=== PATIENT | male | born 1940 | race Caucasian/White ===

== ENCOUNTER 2018-01-01 13:46 | Observation (INO) | payer MEDICARE, OTHER ==
[~2018-01-01] VITALS: Ht 170.2 cm; Wt 71.8 kg
[2018-01-01] VITALS (8 sets, daily range): BP systolic 120–156; BP diastolic 51–64
--- NOTE | 2018-01-01 14:21 | NUR ---
PT TRIAGED, TO ROOM 2 VIA WC TO BEGIN WORKUP. PT TO BATHROOM VIA WC TO OBTAIN URINE SPECIMEN
--- NOTE | 2018-01-01 14:50 | NUR ---
Pt moved to room # 10 for higher level of care per charge nurse.
[2018-01-01 15:06] LABS: URINE BILIRUBIN - DIPSTICK NEGATIVE (NEGATIVE); URINE BLOOD DIPSTICK TRACE-INTACT (NEGATIVE); URINE COLOR YELLOW; URINE GLUCOSE - DIPSTICK NEGATIVE (NEGATIVE); URINE KETONE NEGATIVE (NEGATIVE); URINE LEUK ESTERASE NEGATIVE (NEGATIVE); URINE NITRITE - DIPSTICK NEGATIVE (Negative); URINE PH 5.5 (4.5-8.0); URINE PROTEIN - DIPSTICK 30 mg/dL (NEG-TRACE); URINE SPECIFIC GRAVITY 1.025; URINE UROBILINOGEN - DIPSTICK 0.2 E.U./dL (0.2)
[2018-01-01 15:07] LABS: URINE CLARITY CLEAR
[2018-01-01 15:20] LABS: HEMATOCRIT 20.3 % (39.0-50.0); IMMATURE GRANULOCYTES 2.8 % (0.0-5.0); MEAN CELL VOLUME 113.4 fL CALC (80.0-100.0); MEAN CORPUSCULAR HGB 38.5 pG CALC (26.0-32.0); PLATELET COUNT 176 thou/uL (130-400); RED BLOOD COUNT 1.79 mill/uL (4.70-6.10); RED CELL DISTRI WIDTH 22.7 % (11.5-15.5)
[2018-01-01 15:21] LABS: HEMOGLOBIN 6.9 g/dl (14.0-18.0); MANUAL DIFFERENTIAL YES
--- NOTE | 2018-01-01 15:24 | NUR ---
NACHO MARTE AT BEDSIDE.
[2018-01-01 15:25] LABS: ANISOCYTOSIS MODERATE
[2018-01-01 15:27] LABS: BAND 7 % (0-8)
[2018-01-01 15:28] LABS: ALBUMIN 4.1 g/dL (3.2-5.0); CREATININE 1.8 mg/dL (0.7-1.3); POTASSIUM 4.1 mmol/l (3.5-5.1); TOTAL PROTEIN 6.5 g/dL (6.3-8.2)
[2018-01-01 15:34] LABS: URINE SQUAMOUS EPITHELIAL CELL FEW EPI/hpf (0-FEW)
--- NOTE | 2018-01-01 15:50 | NUR ---
AT BEDSIDE TO ASSIST ESTUARDO, NACHO WITH RECTAL EXAM. EXTERNAL HEMORRHOIDS NOTED, HEMOCCULT NEGATIVE PER BOBTAIL DRIVER. PATIENT TOLERATED WELL.
--- NOTE | 2018-01-01 16:34 | NUR ---
PATIENT UNABLE TO VERIFY MEDICATION LIST, REPORTS BEING ON BLOOD THINNER PLAVIX.
--- NOTE | 2018-01-01 17:22 | NUR ---
NACHO MARTE AT BEDSIDE TO DISCUSS RESULTS AND PLANS FOR ADMIT.
--- NOTE | 2018-01-01 17:46 | NUR ---
FIRST UNIT OF [facility]'S INFUSING AT THIS TIME. PATIENT REPORTS LAST BLOOD TRANSFUSION BEING AUGUST 2017 TO TREAT ANEMIA RELATED TO LEUKEMIA.
--- NOTE | 2018-01-01 17:53 | NUR ---
ATTEMPT MADE TO CALL REPORT. SPOKE TO ISIDRO, REPORTS NURSE WILL CALL BACK.
--- NOTE | 2018-01-01 18:00 | NUR ---
REPORT CALLED TO CONCHIS CELESTIN.
--- NOTE | 2018-01-01 18:05 | NUR ---
NO RECTION TO TRANSFUSION NOTED.
--- NOTE | 2018-01-01 18:08 | NUR ---
Admission Note Report Given to: FAWAD Transported by: Wheelchair X Stretcher Transported with: X Nurse Transporter X Patent IV O2 X Bakery Decorator PATIENT TRANSPORTED TO FLOOR BY CONCHIS LUNA.
--- NOTE | 2018-01-01 18:21 | NUR ---
REPORT RECEIVED FROM ALVARADO IN ED, PT ARRIVED ON UNIT @ 1809, ALERT AND ORIENTED X 4, ORIENTED TO ROOM AND CALL PRIETO, SETTLED IN BED AND SET UP FOR MEAL. DENIED PAIN, AT THIS TIME. [facility] INFUSING ON ARRIVAL, 1ST 15 MINUTES COMPLETED BY ED STAFF, INFUSION SET AT 125 ML/HR, WILL CONTINUE TO MONITOR, SPOUSE IN ROOM.
--- NOTE | 2018-01-01 21:54 | NUR ---
PT STARTED BLOOD TRANSFUSING. BP 137/68. PT A/OX3 NO ADVERSE REACTION S NOTED. EDUCATED TO CALL NURSE IF ANYTHING FEELS UNUSAL. PT VOICED UNDERSTANDING. WILLMONITOR. FOR 15 MINS FOR ADVERSE REACTIONS.
--- NOTE | 2018-01-02 00:37 | NUR ---
Dr kennedy notified that pt bp is trending up, temp slightly elevated. orders recieved for benadryl and tylenol and told to hold third unit of blood and draw H&H in a.m.
[2018-01-02 00:55] VITALS: BP 158/73
[2018-01-02 02:15] VITALS: BP 164/74
[2018-01-02 04:38] VITALS: BP 152/61
--- NOTE | 2018-01-02 07:00 | NUR ---
BEDSIDE REPORT RECEIVED BY JULEE. PT IS RESTING ON HIS LEFT SIDE WITH NO S/S OF DISTRESS NOTED. PT DENIES NEEDS AT THIS TIME. CALL LIGHT IN REACH. IN ROOM.
[2018-01-02 07:08] LABS: HEMATOCRIT 28.3 % (39.0-50.0); HEMOGLOBIN 9.8 g/dl (14.0-18.0)
[2018-01-02 08:02] VITALS: BP 168/93
--- NOTE | 2018-01-02 08:40 | NUR ---
ASSESSMENT DONE TELE IN PLACE. RESPS EVEN AND UNLABORED. #20 RAC THAT APPEARS HEALTHY. PT IS A&O X3. PT DENIES PAIN AT THIS TIME. PT DENIES NEEDS AT THIS TIME. SAFETY PRECAUTIONS REINFORCED AND CALL LIGHT IN REACH.
--- NOTE | 2018-01-02 12:22 | NUR ---
Discharge instructions given. Patient verbalizes understanding of same. Discharged in stable condition via Wheelchair to Home with spouse. All belongings sent with pt.
== END 2018-01-02 12:22 | disposition home or self-care (01) ==
LOC: ED 13:46 → ED-I 17:10 → ED 17:25 → MS2 17:26
PROVIDERS: ADMIT Internal Medicine; ATTEND Internal Medicine
PROC: 30233N1 Transfusion of Nonautologous Red Blood Cells into Peripheral Vein, Percutaneous Approach (ICD-10-PCS; principal; 2018-01-01)
PROC: 30233N1 Transfusion of Nonautologous Red Blood Cells into Peripheral Vein, Percutaneous Approach (ICD-10-PCS; 2018-01-01)
DX: D61.810 Antineoplastic chemotherapy induced pancytopenia (principal); T45.1X5A Adverse effect of antineoplastic and immunosuppressive drugs, initial encounter; C94.80 Other specified leukemias not having achieved remission; I16.0 Hypertensive urgency; I12.9 Hypertensive chronic kidney disease with stage 1 through stage 4 chronic kidney disease, or unspecified chronic kidney disease; N18.3 Chronic kidney disease, stage 3 (moderate); E78.5 Hyperlipidemia, unspecified; Z86.73 Personal history of transient ischemic attack (TIA), and cerebral infarction without residual deficits; Z85.038 Personal history of other malignant neoplasm of large intestine; Z79.899 Other long term (current) drug therapy
CPT/HCPCS: P9016